=== PATIENT | male | born 1990 | race Caucasian/White ===

== ENCOUNTER 2017-11-11 01:03 | Emergency (ER) | payer OTHER ==
--- NOTE | 2017-11-11 01:59 | Diagnostic Imaging Report ---
TAMMY SPIVEY [facility] [address] [facility] [address] [address] Report Submission Date: Nov 11, 2017 1:43:54 AM CDT Patient Study Name: LUCIUS QUEEN Date: Nov 11, 2017 1:27:39 AM CDT Modality Type: DX Gender: M Description: CHEST : 89 Institution: [facility] Physician: TAMMY SPIVEY Chest 2 views History: Shortness of breath and productive cough Findings: The lungs are clear. There is no pleural effusion. Osseous structures are unremarkable. Heart size and pulmonary vascularity are normal. Impression: Normal. Electronically signed on Nov 11, 2017 1:43:54 AM CDT by: Edmar CORNELL
[2017-11-11] MEDS ORDERED: methylPREDNISolone ACETATE 80 MG/ML VIAL IM PRN (02:05)
[2017-11-11] MEDS ORDERED: IPRATROPIUM/ALBUTEROL SULFATE 3 ML AMPUL.NEB NEB ONE (02:05)
[2017-11-11] MEDS ORDERED: methylPREDNISolone ACETATE 80 MG/ML VIAL IM ONE (02:20)
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
[2017-11-11 03:11] VITALS: BP 130/84
== END 2017-11-11 03:05 | disposition home or self-care (01) ==
LOC: ED 01:03
DX: J45.998 Other asthma (principal)
CPT/HCPCS: 71046; J1040; 94640; 96372

== ENCOUNTER 2019-03-22 11:05 | Emergency (ER) | payer OTHER ==
--- NOTE | 2019-03-22 11:09 | ED Physician Documentation ---
General Adult - HISTORIAN Historian: patient - HPI Stated Complaint: shortness of air Chief Complaint: Dyspnea Onset: days ago (5) Timing: still present Severity: moderate Further Comments: yes (He states his symptoms started 5 days ago - he has had fever up to 102 . No OTC meds today. He has not checked his fever. He has a cough that is not productive. He feels short on air when he tries to lay down. He left work today to come to clinic. He does feel short of breath with walking and moving.) - ROS CONST: fever, sweating, weakness EYES/ENT: none CVS/RESP: shortness of breath (chest pain with cough ). denies: chest pain GI/: none MS/SKIN/LYMPH: denies: rash NEURO/PSYCH: denies: headache, fainting, dizziness - PAST HX Past History: none Other History: none Surgeries/Procedures: none Immunizations: UTD Allergies/Adverse Reactions: Allergies Allergy/AdvReac Type Severity Reaction Status Date / Time morphine AdvReac Nausea/Vomi Verified 03/22/19 11:18 ting Home Medications: Ambulatory Orders Medication Instructions Recorded Multivitamin [Multiple Vitamins] 1 each PO DAILY 11/11/17 - SOCIAL HX Smoking History: non-smoker Alcohol Use: none Drug Use: none - FAMILY HX Family History: No - VITAL SIGNS Vital Signs: Vital Signs Temp Pulse Resp BP Pulse Ox 130/84 11/11/17 03:05 - REVIEWED ASSESSMENTS Nursing Assessment Reviewed: Yes Vitals Reviewed: Yes Progress - Progress Progress: 1140: states he has increasing shortness of air and he is not able to sit down due to pain with cough. He states he is too short on air. DG 1143: EKG reveals ST elevation - [facility] called and accept to [facility]. DG 1148: Dr Fred Capps accepting for [facility] DG 1150: Ambulance here for transfer DG ED Results Lab/Radiology - Radiology Radiology Impressions: Examination: 1V chest History: Evaluate lungs Comparison exam: 11 November 2017 Findings: Single view of the chest demonstrates a normal cardiac and mediastinal silhouette. Lung petty without focal infiltrate. No blunting of the costophrenic margins. Osseous structures are appropriate for age. Impression: No acute pulmonary process. Electronically signed on Mar 22, 2019 11:31:16 AM CDT by: Rigo Luque General Adult Physical Exam - PHYSICAL EXAM GENERAL APPEARANCE: moderate distress EENT: eye inspection normal, no signs of dehydration NECK: normal inspection RESPIRATORY: no resp distress, chest non-tender, wheezes, rhonchi (mildly improved with duoneb ) CVS: reg rate & rhythm, heart sounds normal, equal pulses ABDOMEN: soft, no distension, non-tender BACK: normal inspection, no CVA tenderness SKIN: warm/dry, normal color EXTREMITIES: non-tender, normal range of motion, no evidence of injury NEURO: oriented X3 Discharge Clincal Impression: STEMI (ST elevation myocardial infarction) Qualifiers: Involved coronary artery: unspecified coronary artery Qualified Code(s): I21.3 - ST elevation (STEMI) myocardial infarction of unspecified site Referrals: Primary Doctor,No [Primary Care Provider] - 2 Days Comments: Transfer to [place] Dr Capps Accepting DG Condition: Critical Disposition: 02 XFER SHT-TRM HOSP Decision to Admit: NO Date of Decison to Admit: 03/22/19 Decision Time: 11:50
[2019-03-22 11:17] LABS: BASOPHILS % 0.6 % (0.0-1.5); NEUTROPHILS # 5.3 # k/uL (1.4-7.7)
[2019-03-22] MEDS: IPRATROPIUM/ALBUTEROL SULFATE 3 ML AMPUL.NEB NEB ONE (11:20)
[2019-03-22] MEDS: ASPIRIN 81 MG CHEW TAB PO ONE (11:42)
--- NOTE | 2019-03-22 11:45 | Diagnostic Imaging Report ---
CLAUDIA MOLINA [facility] [address] [facility] [address] [place], [place]. [address] Report Submission Date: Mar 22, 2019 11:31:16 AM CDT Patient Study Name: LUCIUS QUEEN Date: Mar 22, 2019 11:04:56 AM CDT Modality Type: DX Gender: M Description: CHEST 1VIEW : 89 Institution: [facility] Physician: CLAUDIA MOLINA Examination: 1V chest History: Evaluate lungs Comparison exam: 11 November 2017 Findings: Single view of the chest demonstrates a normal cardiac and mediastinal silhouette. Lung petty without focal infiltrate. No blunting of the costophrenic margins. Osseous structures are appropriate for age. Impression: No acute pulmonary process. Electronically signed on Mar 22, 2019 11:31:16 AM CDT by: Rigo CORNELL
[2019-03-22] MEDS: 0.9 % SODIUM CHLORIDE 1,000 ML IV ONE (11:46)
[2019-03-22] MEDS: methylPREDNISolone SOD SUCC 125 MG/2 ML VIAL IVP ONE (11:57)
[2019-03-22 12:04] LABS: eGFR (Non-African) > 60
[2019-03-22 12:07] VITALS: BP 114/80
== END 2019-03-22 11:49 | disposition short-term general hospital (02) ==
LOC: ED 11:05
DX: I21.3 ST elevation (STEMI) myocardial infarction of unspecified site (principal)
CPT/HCPCS: 71045; 80053; 84484; 85025; 85379; 93005; 94640; 96361; 96374; 99284; J7030; S1016